=== PATIENT | male | born 1980 | race Caucasian/White ===

== ENCOUNTER 2020-03-14 13:27 | Emergency (ER) | payer MEDICAID ==
[2020-03-14] MEDS ORDERED: XYLOCAINE 1% HCL 20 ML MDV ONE (13:43)
[2020-03-14] MEDS ORDERED: Adacel Vial IM ONE (13:46)
[2020-03-14] MEDS: Adacel Vial IM ONE (13:48)
[2020-03-14] MEDS: XYLOCAINE 1% HCL 20 ML MDV IJ ONE (13:50)
--- NOTE | 2020-03-14 13:50 | ERPHSYRPT ---
- History of Present Illness Time Seen by Provider: 03/14/20 13:40 Source: patient Exam Limitations: no limitations Physician History: Patient is a 39yo M who presents to ED for evaluation and treatment of finger laceration . He initially presented to his doctors office but was sent to our ED due to the complexity of the injury. Patient states he injuryed his finger working on machinery. Patient declined an x ray of his involved digit. Tetanus not UTD. Patient denies other injuries. NO associated symptoms. Patient voices no other c/o or concerns at this time. Occurred: just prior to arrival Method of Injury: unknown Severity of Pain-Max: moderate Severity of Pain-Current: mild Extremities Pain Location: 2nd finger: right Modifying Factors: Improves With: movement Associated Symptoms: none Allergies/Adverse Reactions: No Known Drug Allergies Allergy (Unverified 03/14/20 13:32) Travel Risk - International Travel Have you traveled outside of the country in past 3 weeks: No (N) Have you or anyone close to you been diagnosed with or: No Do your reside in a community with a known COVID-19 case?: Yes If Yes where:: [facility] - Review of Systems Constitutional: No Symptoms, No Fever, No Chills Eyes: No Symptoms Ears, Nose, & Throat: No Symptoms Respiratory: No Symptoms, No Cough, No Dyspnea Cardiac: No Symptoms, No Chest Pain, No Edema, No Syncope Abdominal/Gastrointestinal: No Symptoms, No Abdominal Pain, No Nausea, No Vomiting, No Diarrhea Genitourinary Symptoms: No Symptoms, Penile Discharge, No Dysuria Musculoskeletal: No Symptoms, No Back Pain, No Neck Pain Skin: No Symptoms, No Rash Neurological: No Symptoms, No Dizziness, No Focal Weakness, No Sensory Changes Psychological: No Symptoms Endocrine: No Symptoms Hematologic/Lymphatic: No Symptoms Immunological/Allergic: No Symptoms All Other Systems: Reviewed and Negative - Nursing Vital Signs Nursing Vital Signs: Initial Vital Signs Temperature 98.2 F 03/14/20 13:28 Pulse Rate 75 03/14/20 13:28 Respiratory Rate 16 03/14/20 13:28 Blood Pressure 137/74 03/14/20 13:28 O2 Sat by Pulse Oximetry 98 03/14/20 13:28 - Physical Exam General Appearance: alert Eyes, Ears, Nose, Throat Exam: moist mucous membranes Neck Exam: non-tender, supple Cardiovascular/Respiratory Exam: chest non-tender, normal breath sounds, regular rate/rhythm, no respiratory distress Abdominal Exam: non-tender, No guarding Back Exam: normal inspection, No vertebral tenderness Shoulder Exam: normal inspection Elbow/Forearm Exam: normal inspection Wrist Exam: normal inspection Hand Exam: normal inspection (linear laceration along the radial border of rt. index finger. No tendon involvement. NVI distally. Compartments are soft. ) Neuro/Tendon Exam: normal sensation, normal motor functions, normal tendon functions, responds to pain, no evidence tendon injury, motor deficit, No sensory deficit Mental Status Exam: alert, oriented x 3, cooperative Skin Exam: normal color, warm, dry SpO2 Interpretation: normal SpO2: 98 O2 Delivery: Room Air Procedures - Laceration/Wound Repair Right Lateral Finger Wound Location: Right Wound Length (cm): 3 Wound's Depth, Shape: superficial Wound Explored: contaminated Irrigated: Yes Hibiclens Prep: Yes Anesthesia: local, 1% Lidocaine Volume Anesthetic (ccs): 4 Wound Debrided: minimal Wound Repaired With: sutures Suture Size/Type: 5-0, nylon Number of Sutures: 6 Layer Closure?: No Sterile Dressing Applied?: Yes Splint Applied?: Yes Type of Splint Applied: Alum[place]oam Sling Applied?: No Ordered Tests: Medication Summary Discontinued Medications Generic Name Dose Route Start Last Admin Trade Name Love PRN Reason Stop Dose Admin Diphtheria/Tetanus/Acell Pertussis 0.5 ml 03/14/20 13:43 03/14/20 13:48 Adacel Vial IM 03/14/20 13:44 0.5 ml .ONCE ONE Administration Diphtheria/Tetanus/Acell Pertussis Confirm 03/14/20 13:46 Adacel Vial Administered 03/14/20 13:47 Dose 0.5 ml IM .STK-MED ONE Lidocaine HCl 5 ml 03/14/20 13:40 03/14/20 13:50 Xylocaine 1% Hcl 20 Ml Mdv IJ 03/14/20 13:41 5 ml STAT ONE Administration Lidocaine HCl Confirm 03/14/20 13:43 Xylocaine 1% Hcl 20 Ml Mdv Administered 03/14/20 13:44 Dose 1 ml .ROUTE .STK-MED ONE - Progress Progress: improved Progress Note: 03/14/20 13:50 Patient refused x ray of involved digit/hand. NVI distally pre and post procedure. Patient agrees to follow up with PMD within 48 hours for a re-evaluation. 03/14/20 14:38 Counseled pt/family regarding: diagnosis, need for follow-up - Departure Departure Disposition: Home Clinical Impression: Finger laceration Condition: Good Critical Care Time: No Referrals: DOCTOR,NO FAMILY [Primary Care Provider] - LARS FUENTES MD [ACTIVE STAFF] - Instructions: Laceration Repair With Stitches (DC) Additional Instructions: Discharge/Care Plan LYRIC AREVALO was seen on 03/14/20 in the Emergency Room. The patient was counseled regarding Diagnosis,Lab results, Imaging studies, need for follow up and when to return to the Emergency Room. Prescriptions given: Discharge Note I have spoken with the patient and/or caregivers. I have explained the patient' s condition, diagnosis and treatment plan based on the information available to me at this time. I have answered the patient's and/or caregiver's questions and addressed any concerns. The patient and/or caregivers have as good understanding of the patient's diagnosis, condition and treatment plan as can be expected at this point. The vital signs have been stable. The patient's condition is stable and appropriate for discharge from the emergency department. The patient will pursue further outpatient evaluation with the primary care physician or other designated or consulting physician as outlined in the discharge instructions. The patient and/or caregivers are agreeable to this plan of care and follow-up instructions have been explained in detail. The patient and/or caregivers have received these instruction. The patient/and or caregivers are aware that any significant change in condition or worsening of symptoms should prompt an immediate return to this or the closest emergency department or call 911. Prescriptions: Clindamycin HCl 150 mg [Cleocin 150 mg Capsule] 2 cap PO TID #42 capsule
[2020-03-14 14:37] VITALS: BP 124/65; PULSE 65
[2020-03-14 14:40] VITALS: O2SAT 98
== END 2020-03-14 14:52 | disposition home or self-care (01) ==
LOC: ED 13:27
DX: S61.210A Laceration without foreign body of right index finger without damage to nail, initial encounter (principal); M79.644 Pain in right finger(s); W31.9XXA Contact with unspecified machinery, initial encounter; Y93.89 Activity, other specified; Y92.9 Unspecified place or not applicable
CPT/HCPCS: 12002; 90471; 90715; 96372; 99284